=== PATIENT | female | born 1975 ===

== ENCOUNTER 2016-12-26 10:37 | Emergency (ER) | payer MEDICAID ==
[2016-10-19 10:55] VITALS: BMI 32.5
[2016-12-26 11:29] VITALS: BP 106/75; PULSE 98; RESP 18; TEMP 98.5; O2SAT 99
[2016-12-26] MEDS ORDERED: Amoxicillin-Clav 875-125 mg Tab PO STA (11:34)
--- NOTE | 2016-12-26 11:37 | C.PDOC ---
History Of Present Illness 41 yo female come in for evaluation of gradual worsening of bodyaches, sore throat for past few days. Pt admits, (+) sick contact family member similar sx. Otherwise, pt denies high fever, chills, headache, dizziness, neck pain, drooling, dysphagia, dyspnea, CP, SOB, cough, wheezing, abd. pain, N/V/D, UTI sx. Ambulate to ED for evaluation, not in any apparent distress. Time Seen by Provider: 12/26/16 11:21 Chief Complaint (Nursing): ENT Problem History Per: Patient History/Exam Limitations: None Onset/Duration Of Symptoms: Days (Few) Current Symptoms Are (Timing): Still Present Past Medical History Reviewed: Historical Data, Nursing Documentation, Vital Signs Vital Signs: Last Vital Signs Temp 98.5 F 12/26/16 11:23 Pulse 98 H 12/26/16 11:23 Resp 18 12/26/16 11:23 BP 106/75 12/26/16 11:23 Pulse Ox 99 12/26/16 12:07 - Medical History PMH: Denies: Dementia Family History: States: No Known Family Hx - Social History Hx Alcohol Use: No Hx Substance Use: No - Immunization History Hx Tetanus Toxoid Vaccination: No Hx Influenza Vaccination: No Hx Pneumococcal Vaccination: No Review Of Systems Except As Marked, All Systems Reviewed And Found Negative. Constitutional: Positive for: Other ((+) Body aches ). Negative for: Fever, Chills ENT: Positive for: Throat Pain (Sore throat ) Cardiovascular: Negative for: Chest Pain Respiratory: Negative for: Cough, Shortness of Breath, Wheezing Gastrointestinal: Negative for: Nausea, Vomiting, Abdominal Pain, Diarrhea Musculoskeletal: Negative for: Neck Pain Neurological: Negative for: Headache, Dizziness Physical Exam - Physical Exam Appears: Well, Non-toxic, No Acute Distress Skin: Normal Color, Warm, Dry, No Rash Eye(s): bilateral: Normal Inspection Ear(s): Bilateral: Normal Nose: Discharge (B/L nasal congestion) Oral Mucosa: Moist, No Drooling Throat: Erythema (B/L erythema and edema), Exudate (R>L with tonsillar edema.), No Drooling Neck: Normal, Normal ROM, Supple Cardiovascular: Rhythm Regular Respiratory: Normal Breath Sounds, No Stridor, No Wheezing Gastrointestinal/Abdominal: Normal Exam, Soft, No Tenderness Back: Normal Inspection Extremity: Normal ROM, No Pedal Edema Neurological/Psych: Oriented x3, Normal Speech ED Course And Treatment O2 Sat by Pulse Oximetry: 99 Pulse Ox Interpretation: Normal Progress Note: On re-evaluation, pt is afebrile, hemodynamicaly stable. NOn- toxic. PusleOx 99% RA. ENT: exam c/w acute pharyngitis r/o tonsilitis. Neck: (-) meningeal sign. Lungs: CTA B/L, BS equal B/L. Neurologicaly intact. Pt advised. ref. to F/u with PMD in 2-3 days for re-evaluation. Return to ED if any worsening ro new changes. Medical Decision Making Medical Decision Making: PLAN: * Augmentin PO * Motrin PO * Prednisone PO Disposition Counseled Patient/Family Regarding: Diagnosis, Need For Followup, Rx Given - Disposition Referrals: [facility] [Outside] Disposition: HOME/ ROUTINE Disposition Time: 11:37 Condition: STABLE Additional Instructions: Take medication as prescribed Encourage fluids Follow up with PMD in 2-3 days for re-evaluation. Return to ED if any worsening or new changes. 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 - Scribe Statement The provider has reviewed the documentation as recorded by the Scribe Monica Aguayo All medical record entries made by the Scribe were at my direction and personally dictated by me. I have reviewed the chart and agree that the record accurately reflects my personal performance of the history, physical exam, medical decision making, and the department course for this patient. I have also personally directed, reviewed, and agree with the discharge instructions and disposition.
[2016-12-26] MEDS ORDERED: Amoxicillin-Clav 875-125 mg Tab PO ONE (11:44)
== END 2016-12-26 11:46 | disposition home or self-care (01) ==
LOC: C.ER 10:37
DX: J03.90 Acute tonsillitis, unspecified (principal)

== ENCOUNTER 2017-08-10 09:41 | Inpatient (IN) | payer MEDICAID ==
[2016-10-19 10:55] VITALS: BMI 32.5
[2017-08-10] MEDS ORDERED: Sodium Chloride 0.9% 1,000 ML IV ONE ×3 (10:31→18:00)
[2017-08-10 10:59] LABS: BASO # 0.1 K/uL (0.0-0.2); BASO % 0.9 % (0.0-2.0); EOS # 0.1 K/uL (0.0-0.7); EOS % 2.3 % (0.0-4.0); HEMATOCRIT 40.4 % (34.0-47.0); LYMPH # 1.8 K/uL (1.0-4.3); LYMPH % 32.8 % (20.0-40.0); MEAN CELL VOLUME 86.4 fL (81.0-99.0); MEAN CORPUSCULAR HEMOGLOBIN 28.8 pg (27.0-31.0); MEAN CORPUSCULAR HGB CONC 33.3 g/dL (33.0-37.0); MEAN PLATELET VOLUME 8.4 fL (7.2-11.7); MONO # 0.4 K/uL (0.0-0.8); RED CELL DISTRIBUTION WIDTH 14.6 % (11.5-14.5); WHITE BLOOD COUNT 5.6 K/uL (4.8-10.8)
[2017-08-10 11:12] LABS: RBC URINE 2 /hpf (0-3); URINE BACTERIA OCC (<OCC); URINE BILIRUBIN NEGATIVE (NEGATIVE); URINE BLOOD NEGATIVE (NEGATIVE); URINE COLOR Yellow (YELLOW); URINE GLUCOSE (UA) NORMAL (Normal); URINE KETONE NEGATIVE (NEGATIVE); URINE LEUKOCYTE ESTERASE 3+ Leu/uL (Negative); URINE PROTEIN NEGATIVE (NEGATIVE); URINE UROBILINOGEN NORMAL mg/dL (0.2-1.0); WBC URINE 15 /hpf (0-5)
[2017-08-10 11:21] LABS: BILIRUBIN,TOTAL 0.6 mg/dL (0.2-1.3); CALCIUM 8.3 mg/dl (8.6-10.4); GFR AFRICAN-AMERICAN > 60; GLUCOSE,RANDOM 73 mg/dL (65-105); TOTAL PROTEIN 8.7 g/dL (6.3-8.3)
[2017-08-10 11:24] LABS: ALKALINE PHOSPHATASE 69 U/L (38-126); ALT/SGPT 29 U/L (9-52); AST/SGOT 32 U/L (14-36); BLOOD UREA NITROGEN 13 mg/dL (7-17); CARBON DIOXIDE 25 mmol/L (22-30); CHLORIDE 101 mmol/L (98-107); POTASSIUM 4.4 mmol/L (3.6-5.2); SODIUM 135 mmol/L (132-148)
[2017-08-10] MEDS ORDERED: Lidocaine 1% Inj (20ml) ONE (15:37)
[2017-08-10] MEDS ORDERED: ceFAZolin IV 2 gm in Dextrose 2 GM/50 ML BAG IVPB ONE (15:37)
[2017-08-10] MEDS ORDERED: Bupivacaine HCl 0.25% PF (10 ml) Inj ONE (15:37)
[2017-08-10] MEDS ORDERED: ceFAZolin 1 gm FROZEN Premix 0 GM/0 ML ML IVPB ONE (15:38)
[2017-08-10] MEDS ORDERED: Propofol 10 mg/ml Inj (20 ML) ONE (15:44)
[2017-08-10] MEDS ORDERED: Midazolam 2 MG/2 ML VIAL ONE (15:44)
[2017-08-10] MEDS ORDERED: Oxycodone/Acetaminophen 5/325 mg Tab PO PRN (16:15)
--- NOTE | 2017-08-10 18:37 | C.PDOC ---
History Of Present Illness 41 year old female presents to the ED for evaluation of phlebitis and leg swelling for several weeks. Patient states she followed up with Dr. Borden for right leg pain. She notes her symptoms have worsened and she has failed outpatient therapy. Patient was advised by Dr. Borden to present to the ED for possible admission. Patient denies fever, chills at this time. Time Seen by Provider: 08/10/17 09:55 Chief Complaint (Nursing): Abnormal Skin Integrity History Per: Patient History/Exam Limitations: no limitations Onset/Duration Of Symptoms: Other (several weeks ) Current Symptoms Are (Timing): Still Present Quality Of Symptoms: Swollen Additional History Per: Patient Past Medical History Reviewed: Historical Data, Nursing Documentation, Vital Signs Vital Signs: Last Vital Signs Temp 98 F 08/10/17 18:00 Pulse 75 08/10/17 18:00 Resp 14 08/10/17 18:00 BP 123/73 08/10/17 18:00 Pulse Ox 100 08/10/17 19:04 - Medical History PMH: No Chronic Diseases Denies: Dementia, Chronic Kidney Disease, Seizures Surgical History: No Surg Hx Family History: States: Unknown Family Hx - Social History Hx Alcohol Use: No Hx Substance Use: No - Immunization History Hx Tetanus Toxoid Vaccination: No Hx Influenza Vaccination: No Hx Pneumococcal Vaccination: No Review Of Systems Constitutional: Negative for: Fever, Chills Musculoskeletal: Positive for: Leg Pain (and swelling ) Physical Exam - Physical Exam Appears: Non-toxic, No Acute Distress Skin: Normal Color, Warm, Dry Oral Mucosa: Moist Neck: Supple Chest: Symmetrical, No Deformity, No Tenderness Cardiovascular: Rhythm Regular, No Murmur Respiratory: Normal Breath Sounds, No Rales, No Rhonchi, No Wheezing Extremity: Normal ROM, Capillary Refill (less than 2 seconds ), Other (3+edema to bilateral lower extremities. positive tortuous veins in right lower extremity ) Neurological/Psych: Oriented x3, Normal Speech, Normal Cognition Gait: Steady ED Course And Treatment - Laboratory Results Result Diagrams: 08/10/17 10:46 08/10/17 10:46 ECG: Interpreted By Me, Viewed By Me ECG Rhythm: Sinus Rhythm Rate From EC O2 Sat by Pulse Oximetry: 100 (on RA ) Pulse Ox Interpretation: Normal Medical Decision Making Medical Decision Making: Progress: Bloodwork, UA, EKG ordered and reviewed. Patient received IV Fluids. 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 - Scribe Statement The provider has reviewed the documentation as recorded by the Scribe (Leticia Cook) All medical record entries made by the Scribe were at my direction and personally dictated by me. I have reviewed the chart and agree that the record accurately reflects my personal performance of the history, physical exam, medical decision making, and the department course for this patient. I have also personally directed, reviewed, and agree with the discharge instructions and disposition.
[2017-08-10] MEDS: ceFAZolin 1 gm FROZEN Premix 1 GM/50 ML ML IVPB SCH (22:36)
[2017-08-10] MEDS: Enoxaparin 30 mg Syringe SC SCH (22:36)
[2017-08-10] MEDS: Oxycodone/Acetaminophen 5/325 mg Tab PO PRN (23:42)
[2017-08-11 01:33] VITALS: RESP 20
--- NOTE | 2017-08-11 02:55 | OP ---
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 2. Varicose veins of the right leg. PROCEDURE PERFORMED: 1. Wide and deep excision of vascular tumor of the right leg with adjacent tissue transfer closure. 2. Stab phlebectomy, varicose veins of the right leg. SURGEON: Eloy Borden MD ANESTHESIA: General. BLOOD LOSS: 30 mL. POSTOPERATIVE CONDITION: Stable. INDICATIONS FOR SURGERY: This is a 41-year-old female with a 5 cm mass of the right leg associated with varicose veins. She will now undergo a wide and deep excision of the 5-cm inflammatory mass along with varicose vein excision. DESCRIPTION OF THE PROCEDURE: The patient was taken to the operating room and general anesthesia was administered. The right leg was prepped and draped and generous elliptical incision was made and a 5 cm mass was dissected free into the fascial and removed. The bleeding was controlled using the Bovie. A larger blood vessel was repaired. Generous tissue flaps were raised using the Bovie. A 40 sq cm advancement flap closure was performed using by widely mobilizing, multiple layers of Monocryl, subcuticular Monocryl, and glue. The remaining associated varicose veins were then excised via stab phlebectomy. Simple closures were performed with a subcuticular Monocryl. The patient tolerated the procedure well and returned to the recovery room in stable condition. Eloy Borden MD
[2017-08-11] MEDS: Oxycodone/Acetaminophen 5/325 mg Tab PO PRN (03:47)
[2017-08-11] MEDS: ceFAZolin 1 gm FROZEN Premix 1 GM/50 ML ML IVPB SCH (05:30)
[2017-08-11] MEDS ORDERED: DiphenhydrAMINE 50 mg/ml Inj IVP STA (05:37)
[2017-08-11 07:20] LABS: BASO % 0.4 % (0.0-2.0); EOS # 0.1 K/uL (0.0-0.7); EOS % 1.6 % (0.0-4.0); HEMATOCRIT 35.2 % (34.0-47.0); LYMPH # 1.7 K/uL (1.0-4.3); LYMPH % 23.6 % (20.0-40.0); MEAN CELL VOLUME 86.5 fL (81.0-99.0); MEAN CORPUSCULAR HGB CONC 33.6 g/dL (33.0-37.0); MEAN PLATELET VOLUME 8.3 fL (7.2-11.7); MONO # 0.4 K/uL (0.0-0.8); MONO % 5.7 % (0.0-10.0); RED CELL DISTRIBUTION WIDTH 14.3 % (11.5-14.5); WHITE BLOOD COUNT 7.3 K/uL (4.8-10.8)
[2017-08-11 08:08] VITALS: BP 106/70; PULSE 79; TEMP 98; O2SAT 97
[2017-08-11 08:11] LABS: BLOOD UREA NITROGEN 9 mg/dL (7-17); CALCIUM 7.5 mg/dl (8.6-10.4); CARBON DIOXIDE 25 mmol/L (22-30); CHLORIDE 101 mmol/L (98-107); GFR AFRICAN-AMERICAN > 60; GLUCOSE,RANDOM 77 mg/dL (65-105); POTASSIUM 3.7 mmol/L (3.6-5.2); SODIUM 135 mmol/L (132-148)
[2017-08-11] MEDS ORDERED: Influenza Vaccine 60 mcg/0.5 mL SYR (4YR UP) IM ONE (10:00)
[2017-08-11] MEDS ORDERED: Pneumococcal 23-Valent Vaccine IM ONE (10:00)
[2017-08-11] MEDS: Enoxaparin 30 mg Syringe SC SCH (10:32)
--- NOTE | 2017-08-11 11:04 | CARD ---
APPROVED REPORT EKG Measurement Heart [id number] <Conclusion> Normal sinus rhythm Nonspecific T wave abnormality Abnormal ECG
== END 2017-08-11 13:03 | disposition home or self-care (01) | DRG 479 ==
LOC: C.ER 09:41 → C.3T 09:41 → C.SDS 12:15 → C.9S 16:15 → C.5S 18:26 → C.3T 08-11 02:59
PROVIDERS: ADMIT Surgery; ATTEND Surgery
PROC: 06BY0ZZ Excision of Lower Vein, Open Approach (ICD-10-PCS; principal; 2017-08-10 16:00)
PROC: 0HXKXZZ Transfer Right Lower Leg Skin, External Approach (ICD-10-PCS; 2017-08-10 16:00)
DX: I83.91 Asymptomatic varicose veins of right lower extremity (principal); D18.09 Hemangioma of other sites